=== PATIENT | male | born 1960 | race Caucasian/White ===

== ENCOUNTER 2017-11-24 10:30 | Outpatient (CLI) | payer MEDICARE, OTHER ==
[~2017-11-24 10:30] MED LIST: ACETAMINOPHEN 325 MG TABLET PO PRN; DIPHENHYDRAMINE HCL 25 MG CAPSULE PO PRN; FUROSEMIDE INJ/PF 20 MG/2 ML SDV IV PRN
[2017-11-24 12:06] LABS: HEMATOCRIT 19.4 % (37.9-51.0); MEAN CORPUSCULAR HEMOGLOBIN 33.6 pg (27.0-33.4); MEAN CORPUSCULAR HGB CONC 33.3 g/dL (32.0-36.0); RED BLOOD COUNT 1.92 10^6/uL (4.35-5.55); RED CELL DISTRIBUTION WIDTH 24.7 % (11.5-14.0); WHITE BLOOD COUNT 3.5 10^3/uL (4.0-10.5)
[2017-11-24 12:29] LABS: HEMOGLOBIN 6.5 g/dL (13.5-17.0); PLATELET COUNT 47 10^3/uL (150-450)
[2017-11-24 12:30] LABS: MEAN CORPUSCULAR VOLUME 101 fl (80-97)
[2017-11-24 17:34] VITALS: BP 143/73
== END 2017-11-24 18:00 | disposition home or self-care (01) ==
LOC: LAB 10:30 → 2N 10:50 → LAB 18:00
PROVIDERS: ATTEND Internal Medicine
DX: D64.9 Anemia, unspecified (principal)
CPT/HCPCS: 86900; 86901; 36415; 36430; 86850; 86920; P9016; J1940